=== PATIENT | male | born 1975 ===

== ENCOUNTER 2019-10-30 17:35 | Emergency (ER) | payer SELFPAY ==
[2019-10-30 17:42] VITALS: BP 190/99; PULSE 73; RESP 18; TEMP 36.5; O2SAT 99; BMI 25.0
--- NOTE | 2019-10-30 17:47 | ECG_ITS ---
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 Measurements Intervals [place] Rate: 69 P: [place]: -1 QRS: 105 QRSD: 184 T: 252 QT: 365 QTc: 393 Interpretive Statements Sinus rhythm No previous ECG available for comparison Electronically Signed On 10-31-2019 17:40:22 CDT by Markus Dodd M.D. [id number]
--- NOTE | 2019-10-30 17:47 | XRR_ITS ---
PROCEDURE INFORMATION: Exam: XR Chest, 1 View Exam date and time: 10/30/2019 5:58 PM Age: 44 years old Clinical indication: Chest pain; Type not specified TECHNIQUE: Imaging protocol: XR of the chest Views: 1 view. COMPARISON: No relevant prior studies available. FINDINGS: Lungs: Unremarkable. No consolidation. Pleural space: Unremarkable. No pleural effusion. No pneumothorax. Heart/Mediastinum: Unremarkable. No cardiomegaly. Bones/joints: Unremarkable. XR/XR chest 1V portable [id number] IMPRESSION: No acute findings.
[2019-10-30 18:30] LABS: Troponin(5th) Baseline 6 ng/L (0-15)
--- NOTE | 2019-10-30 19:47 | ECG_ITS ---
[facility] Test Date: 2019-10-30 Pat Name: Uli Singh Department: Room: Gender: Male P 3 Armament/Ordnance Ima Technician: : 1975 Requested By: Renuka Juan Order Number: [id number] Joselin MD: Soumya Verma M.D. Measurements Intervals [place] Rate: 59 P: 75 [place]: 174 QRS: 76 QRSD: 78 T: 52 QT: 394 QTc: 392 Interpretive Statements SINUS BRADYCARDIA No previous ECG available for comparison Electronically Signed On 10-30-2019 21:45:54 CDT by Soumya Verma M.D. [id number]
[2019-10-30 19:50] VITALS: BP 188/106; PULSE 60; RESP 21; O2SAT 99
--- NOTE | 2019-10-30 19:57 | W.ED.GENADLT ---
HPI - General Adult General: Chief complaint: General Medical Stated complaint: CP Time Seen by Provider: 10/30/19 19:41 History of Present Illness: HPI narrative: This patient is a 44-year-old male presenting with high blood pressure. He said for the past week or so he has not felt well. He has had racing of his heart at times, particular when he wakes up in the morning. He also wakes up trying to catch his breath sometimes. He also has been having severe headaches and some intermittent chest pain. He had an episode similar to this in the past and at that time was diagnosed with a very high blood pressure. He was started on blood pressure medicine but eventually has stopped taking it. He checked his blood pressure at home last night and noted it was quite high. His made him an appointment to see his primary care provider today but when he got to the office and they checked his blood pressure they told him he had to come to the ER. Associated symptoms: Deny chest pain, dyspnea, headache(s), malaise, nausea, rash or vomiting Review of Systems General: Reports: 10 or more systems reviewed and unremarkable except in HPI and below Const: Denies: fever(s), chills, fatigue or malaise Eyes: Denies: change in vision ENMT: Denies: odynophagia Card: Denies: chest pain or swelling of feet/ankles Resp: Denies: dyspnea, productive cough or non-productive cough GI: Denies: abdominal pain, nausea or vomiting : Denies: flank pain Musc: Denies: neck pain or back pain Skin/Breast: Denies: rash Neuro: Denies: headache(s), numbness in extremities or weakness in extremities Kye/Lymph: Denies: easy bruising or easy bleeding [facility] ED PFSH: Social History (Updated 10/30/19 @ 17:46 by Jennifer Gomez RN) Smoking and tobacco status: former smoker Alcohol intake: current Substance/Drug Use: current Substance/Drug use type: Marijuana Physical Exam Const: COMMON NORMALS: no acute distress, patient oriented x3, no limitations and alert GENERAL APPEARANCE: cooperative and comfortable HENMT: HEAD & SCALP: normal to inspection FACE & SINUS: normal facial exam Eye: GENERAL EYE: appearance normal, both eyes and all related structures Neck/C-Spine: COMMON NORMALS: supple, no meningeal signs and no JVD Chest: COMMONS NORMALS: normal inspection of the chest Resp: COMMON NORMALS: normal respiratory effort, No use of accessory muscles and clear to auscultation bilaterally AUSCULTATION: clear to auscultation bilaterally Cardio: COMMON NORMALS: no JVD, regular rate, regular rhythm and No murmurs present (Cardio) RATE: regular rate RHYTHM: regular rhythm GI: COMMON NORMALS: Normal to inspection, nondistended, normoactive bowel sounds present, Soft to palpation and non-tender INSPECTION: Yes normal to inspection AUSCULTATION: Yes normoactive bowel sounds PALPATION: Yes Soft to palpation Back/Pelvis: COMMON NORMALS: thoracic and lumbar spine normal to inspection Extremity: COMMON NORMALS: normal to inspection Neuro: COMMON NORMALS: patient oriented x3, moves all extremities, no focal motor deficits and no sensory deficits noted SENSORIUM/ORIENTATION: Yes alert MENINGEAL SIGNS: Yes no meningeal signs Psych: COMMON NORMALS: mental status grossly normal, cooperative and normal affect Skin: COMMON NORMALS: no rashes or lesions noted and turgor normal GENERAL SKIN EXAM: no rashes or lesions noted and turgor normal Course ED course: Patient came in with high blood pressure. He has a history of the same but has not been on medications. His work-up was negative in the emergency department. We discussed that it is important for him to stay on blood pressure medicine as long-term effects can cause organ damage, strokes, kidney failure. He was given a prescription for lisinopril, 10 mg daily to start and he will follow-up with his primary care physician. Vital Signs: Vital signs: Vital Signs Temperature 97.7 F 10/30/19 17:42 Pulse Rate 57 L 10/30/19 21:19 Respiratory Rate 19 H 10/30/19 21:19 Blood Pressure 163/99 10/30/19 21:19 Pulse Oximetry 96 10/30/19 21:19 MDM - General Adult Lab Data: Labs: Lab Results 10/30/19 10/30/19 10/30/19 Range/Units 18:00 20:12 20:12 WBC 11.6 H (4.0-10.0) 10^3/ uL RBC 5.06 (4.1-5.3) 10^6/u L Hgb 16.7 H (11.7-16.6) g/dL Hct 49.9 (42.0-52.0) % MCV 98.6 H (80-94) fL MCH 33.0 (28.0-34.0) pg MCHC 33.5 (30.0-36.0) g/dL RDW 13.1 (12.1-15.1) % Plt Count 246 (130-400) 10^3/c mm MPV 9.7 (7.4-10.4) fL Neut % (Auto) 70.6 % Lymph % (Auto) 19.2 % Carver % (Auto) 7.4 % Eos % (Auto) 1.8 % Baso % (Auto) 0.7 % Neut # (Auto) 8.19 H (1.8-7.7) 10^3/u L Lymph # (Auto) 2.2 (0.8-4.8) 10^3/u L Carver # (Auto) 0.9 (0.2-0.9) 10^3/u L Eos # (Auto) 0.2 (0.0-0.8) 10^3/u L Baso # (Auto) 0.1 (0.0-0.1) 10^3/u L Nucleated RBC % (a uto) 0 % Nucleated RBCs # 0.0 /100WBC Sodium (136-145) mmol/L Potassium (3.5-5.1) mmol/L Chloride (98-107) mmol/L Carbon Dioxide (22-29) mmol/L Anion Gap (5-19) BUN (6-20) mg/dL Creatinine (0.7-1.2) mg/dL GFR Calculation (90-130) mL/min Glucose (65-115) mg/dL Calculated Osmolal ity (285-295) mOsm/k g Calcium (8.5-10.5) mg/dL Total Bilirubin (0.15-1.2) mg/dL AST (0-40) U/L ALT (0-41) U/L Alkaline Phosphata se (40-130) IU/L Troponin T Baselin e 6 (0-15) ng/L Troponin T 120 Min [place] 6.00 (0-15) ng/L Delta Troponin T 0 (0-10) ABS# Total Protein (6.6-8.7) g/dL Albumin (3.5-5.2) g/dL Globulin (1.3-4.6) g/dL Lipase (13-60) U/L Urine Color (Yellow) Urine Appearance (CLEAR) Urine pH (5-7) Ur Specific Gravit y (1.005-1.030) Urine Protein (Negative) Urine Glucose (UA) (Normal) Urine Ketones (Negative) Urine Blood (Negative) Urine Nitrate (Negative) Urine Bilirubin (NEGATIVE) Urine Urobilinogen (Negative) mg/dL Ur Leukocyte Krista ase (Negative) Urine RBC (0-2) /hpf Urine WBC (0-5) /hpf Ur Squamous Epith Cells (0-5) Amorphous Sediment Urine Bacteria (NONE) 10/30/19 10/30/19 Range/Units 20:12 20:38 WBC (4.0-10.0) 10^3/ uL RBC (4.1-5.3) 10^6/u L Hgb (11.7-16.6) g/dL Hct (42.0-52.0) % MCV (80-94) fL MCH (28.0-34.0) pg MCHC (30.0-36.0) g/dL RDW (12.1-15.1) % Plt Count (130-400) 10^3/c mm MPV (7.4-10.4) fL Neut % (Auto) % Lymph % (Auto) % Carver % (Auto) % Eos % (Auto) % Baso % (Auto) % Neut # (Auto) (1.8-7.7) 10^3/u L Lymph # (Auto) (0.8-4.8) 10^3/u L Carver # (Auto) (0.2-0.9) 10^3/u L Eos # (Auto) (0.0-0.8) 10^3/u L Baso # (Auto) (0.0-0.1) 10^3/u L Nucleated RBC % (a uto) % Nucleated RBCs # /100WBC Sodium 134 L (136-145) mmol/L Potassium 3.9 (3.5-5.1) mmol/L Chloride 102 (98-107) mmol/L Carbon Dioxide 22 (22-29) mmol/L Anion Gap 13.9 (5-19) BUN 13 (6-20) mg/dL Creatinine 0.8 (0.7-1.2) mg/dL GFR Calculation 105.5 (90-130) mL/min Glucose 109 (65-115) mg/dL Calculated Osmolal ity 275 L (285-295) mOsm/k g Calcium 9.1 (8.5-10.5) mg/dL Total Bilirubin 0.4 (0.15-1.2) mg/dL AST 19 (0-40) U/L ALT 18 (0-41) U/L Alkaline Phosphata se 70 (40-130) IU/L Troponin T Baselin e (0-15) ng/L Troponin T 120 Min [place] (0-15) ng/L Delta Troponin T (0-10) ABS# Total Protein 8.0 (6.6-8.7) g/dL Albumin 4.7 (3.5-5.2) g/dL Globulin 3.3 (1.3-4.6) g/dL Lipase 26 (13-60) U/L Urine Color Yellow (Yellow) Urine Appearance Clear (CLEAR) Urine pH 7 (5-7) Ur Specific Gravit y 1.015 (1.005-1.030) Urine Protein Neg (Negative) Urine Glucose (UA) Norm (Normal) Urine Ketones Negative (Negative) Urine Blood Trace H (Negative) Urine Nitrate Negative (Negative) Urine Bilirubin Neg (NEGATIVE) Urine Urobilinogen Norm (Negative) mg/dL Ur Leukocyte Krista ase Negative (Negative) Urine RBC Rare (0-2) /hpf Urine WBC None (0-5) /hpf Ur Squamous Epith Cells None (0-5) Amorphous Sediment Not Reportable Urine Bacteria None (NONE) Discharge Plan Discharge Patient Disposition: Home Condition: Stable Prescriptions: New lisinopril 10 mg tablet 10 mg PO DAILY Qty: 30 RF: 0 No Action Aleve 220 mg Tablet 440 - 660 mg PO PRN RF: 0 Discharge Orders: Discharge Order (Routine); Ordered 10/30/19 Ordered By: Renuka Sandy Discharge Diet: Low Salt Discharge Activity: Resume usual activity Patient Instructions: Hypertension (ED) Activity Restrictions/Additional Instructions: Follow-up with your primary care provider for further management of your blood pressure. It could be helpful to check your blood pressure daily at home and keep a log so that your doctor can see if the medication is working. Watch the amount of sodium in your diet as that can contribute to high blood pressures. Also limit caffeine intake and avoid energy drinks. Discharge Date/Time: 10/30/19 21:25 Coding Level of Care Code ED Soil Conservation Teacher for Vivi Deluca
[2019-10-30] MEDS: cloNIDine 0.1 mg Tablet PO (20:15)
[2019-10-30 20:18] LABS: Basophils # 0.1 10^3/uL (0.0-0.1); Basophils % 0.7 %; Eosinophils # 0.2 10^3/uL (0.0-0.8); Eosinophils % 1.8 %; Hematocrit 49.9 % (42.0-52.0); Hemoglobin 16.7 g/dL (11.7-16.6); Lymphocytes # 2.2 10^3/uL (0.8-4.8); Lymphocytes % 19.2 %; Mean Corpuscular HGB Conc 33.5 g/dL (30.0-36.0); Mean Corpuscular Volume 98.6 fL (80-94); Mean Platelet Volume 9.7 fL (7.4-10.4); Monocytes # 0.9 10^3/uL (0.2-0.9); Monocytes % 7.4 %; Neutrophils # 8.19 10^3/uL (1.8-7.7); Neutrophils % 70.6 %; Nucleated Red Blood Cells % 0 %; Platelet Count 246 10^3/cmm (130-400); Red Blood Count 5.06 10^6/uL (4.1-5.3); Red Cell Distribution Width 13.1 % (12.1-15.1); White Blood Count 11.6 10^3/uL (4.0-10.0)
[2019-10-30 20:36] LABS: Alanine Aminotransferase 18 U/L (0-41); Albumin Level 4.7 g/dL (3.5-5.2); Alkaline Phosphatase 70 IU/L (40-130); Anion Gap 13.9 (5-19); Aspartate Amino Transferase 19 U/L (0-40); Blood Urea Nitrogen 13 mg/dL (6-20); Calcium 9.1 mg/dL (8.5-10.5); Carbon Dioxide 22 mmol/L (22-29); Chloride 102 mmol/L (98-107); Globulin 3.3 g/dL (1.3-4.6); Glomerular Filtration Rate 105.5 mL/min (90-130); Glucose 109 mg/dL (65-115); Lipase 26 U/L (13-60); Osmolality Calculated 275 mOsm/kg (285-295); Potassium 3.9 mmol/L (3.5-5.1); Sodium 134 mmol/L (136-145); Total Bilirubin 0.4 mg/dL (0.15-1.2)
[2019-10-30 20:37] LABS: Troponin 5 2HR Delta 0 ABS# (0-10)
[2019-10-30 20:46] VITALS: BP 152/101; PULSE 70; RESP 17; O2SAT 97
[2019-10-30] MEDS: lisinopril 10 mg Tablet PO (20:47)
[2019-10-30 21:19] VITALS: BP 163/99; PULSE 57; RESP 19; O2SAT 96
[2019-10-30 21:36] LABS: Add Urine Microscopic? YES; Bilirubin Urine Neg (NEGATIVE); Blood Urine Trace (Negative); Glucose Urine UA Norm (Normal); Ketones Urine Negative (Negative); Leukocyte Esterase Urine Negative (Negative); Nitrate Urine Negative (Negative); Protein Urine Neg (Negative); RBC Urine RARE /hpf (0-2); Specific Gravity, Urine 1.015 (1.005-1.030); Urine Appearance Clear (CLEAR); Urine Color Yellow (Yellow); Urobilinogen Urine Norm (Negative); pH Urine 7 (5-7)
== END 2019-10-30 21:25 | disposition home or self-care (01) ==
PROVIDERS: Emergency Provider Emergency Medicine
DX: R07.9 Chest pain, unspecified (principal); I10 Essential (primary) hypertension; Z87.891 Personal history of nicotine dependence
CPT/HCPCS: 12345; 36415; 71045; 80053; 81001; 83690; 84484; 85025; 93005; 93010; 99283; 99284

== ENCOUNTER 2024-10-04 15:40 | Emergency (ER) | payer SELFPAY ==
--- NOTE | 2024-10-04 15:43 | ECG_ITS ---
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 Measurements Intervals [place] Rate: 86 P: 80 [place]: 172 QRS: 73 QRSD: 81 T: 50 QT: 346 QTc: 414 Interpretive Statements SINUS RHYTHM WITH SINUS ARRHYTHMIA POSSIBLE LEFT ATRIAL ENLARGEMENT [-0.1mV P-WAVE IN V1/V2] INTERPRETATION BASED ON A DEFAULT AGE OF 40 YEARS Compared to ECG 10/30/2019 19:51:51 Sinus bradycardia no longer present Electronically Signed On 10-05-2024 15:20:59 CDT by Emani New M.D. [email or web address] [id number]
--- OUTSIDE RECORDS SUMMARY | 2024-10-04 15:50 | XMS_ITS | Clinical Summary ---
Author Organization [facility] Address [address] [place] [address] Phone Care Team Providers Care Director Of Aviation Name Role Phone Unavailable Primary Care Provider Unavailabl e Allergies No known active allergies Medications HYDROcodone-acet aminophen (NORCO) 5-325 mg Oral tablet Take 1-2 Tabs by mouth every 6 hours as needed for Pain. 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 Gender Identity Not on file Sexual Orientation Not on file Last Filed Vital Signs Vital Sign Reading Time Taken Comments Blood Pressure 130/86 08/12/2010 10:50 AM CDT Pulse 70 08/12/2010 10:50 AM CDT Temperature 36.1 C (96.9 F) 08/12/2010 9:49 AM CDT Respiratory Rate 16 08/12/2010 10:50 AM CDT Oxygen Saturation 98% 08/12/2010 10:50 AM CDT Inhaled Oxygen Concentration - - Weight 70.3 kg (155 lb) 08/12/2010 9:49 AM CDT Height 172.7 cm (5' 8 ) 08/12/2010 9:49 AM CDT Body Mass Index 23.57 08/12/2010 9:49 AM CDT Plan of Treatment Health Maintenance Due Date Last Done Comments DTAP/TDAP/TD VACCINES (1 - Tdap) 1995 HEPATITIS B VACCINES (1 of 3 - 19+ 3-dose series) 02/27 COLORECTAL SCREENING 2021 Colorectal Cancer Screening 2021 FIT-DNA Q 3 years 2021 FIT/FOBT Q 1 year 2021 Flex Sig/CT Colonography Q 5 years 2021 INFLUENZA VACCINE (#1) 2024
[2024-10-04 15:52] VITALS: BP 172/92; PULSE 82; RESP 18; TEMP 37.1; O2SAT 98; BMI 25.0
--- NOTE | 2024-10-04 16:15 | XRR_ITS ---
PROCEDURE INFORMATION: Exam: XR Chest Exam date and time: 10/04/2024 4:19 PM Age: 49 years old Clinical indication: Pain; Chest pressure; Additional info: Chest pain TECHNIQUE: Imaging protocol: Radiologic exam of the chest. Views: 1 view. COMPARISON: CR XR chest 1V portable [id number] 10/30/2019 5:50 PM FINDINGS: Lungs: Unremarkable. No consolidation. Pleural spaces: Unremarkable. No pleural effusion. No pneumothorax. Heart/Mediastinum: Unremarkable. No cardiomegaly. Bones/joints: Unremarkable. XR/XR chest 1V portable [id number] IMPRESSION: No acute findings.
[2024-10-04 16:39] LABS: Hematocrit 43.8 % (37-53); Hemoglobin 15.10 g/dL (11.27-16.99); Mean Corpuscular HGB Conc 34.5 g/dL (30-55); Mean Corpuscular Hemoglobin 33.3 pg (27-33); Mean Corpuscular Volume 96.7 fl (82-101); Nucleated Red Blood Cells % 0 %; Platelet Count 278 10^3/cmm (157-399); Red Blood Count 4.53 10^6/uL (3.85-5.65); White Blood Count 11.40 10^3/uL (3.29-11.43)
[2024-10-04 17:05] LABS: Troponin(5th) Baseline < 6 ng/L (0-15)
[2024-10-04 17:14] LABS: Alanine Aminotransferase 21 U/L (0-41); Albumin Level 4.8 g/dL (3.5-5.2); Alkaline Phosphatase 94 U/L (40-130); Anion Gap 19.5 (5-19); Aspartate Amino Transferase 21 U/L (0-40); Blood Urea Nitrogen 13 mg/dL (6-20); Calcium 9.6 mg/dL (8.5-10.5); Carbon Dioxide 21 mmol/L (22-29); Chloride 104 mmol/L (98-107); Creatinine Clr Calc Pharmacy 97.5228; Globulin 2.8 g/dL (1.3-4.6); Glucose 107 mg/dL (65-115); NT Pro B Type Natriuretic Pept < 36 pg/mL (0-125); Osmolality Calculated 293 mOsm/kg (285-295); Potassium 3.5 mmol/L (3.5-5.1); Sodium 141 mmol/L (136-145); Total Protein 7.6 g/dL (6.6-8.7)
--- NOTE | 2024-10-04 17:18 | W.ED.CHESTPA ---
Documented by User: Terry Simental DO 10/05/24 13:37 HPI - Chest Pain General: Chief Complaint: Chest Pain Stated Complaint: CP SOB Time Seen by Provider: 10/04/24 17:12 History of Present Illness: 49-year-old male presents emergency room generally not feeling well. Patient states he was somewhat short of breath just did not feel well today complained of a little pressure but never actually had chest pain he knows chief complaint is listed as his chest pain. Is on lisinopril and elbow to be for hypertension no recent dose changes. He is not a smoker. No fever sweats chills no productive cough Associated symptoms: Deny abdominal pain, dyspnea or fever(s) Related Data Home Medications ?Medication ?Instructions ?Recorded ?Confirmed naproxen sodium 220 mg tablet 440 - 660 mg PO PRN 10/30/19 10/30/19 (Aleve) Previous Rx's ?Medication ?Instructions ?Recorded lisinopril 10 mg tablet 10 mg PO DAILY #30 tabs 10/30/19 albuterol sulfate 90 mcg/actuation 2 inh inhalation Q4H PRN shortness 10/04/24 aerosol inhaler (Ventolin HFA) of breath or wheezing #8.5 grams prednisone 20 mg tablet 20 mg PO BID 5 days #10 tabs 10/04/24 Allergies Allergy/AdvReac Type Severity Reaction Status Date / Time No Known Allergies Allergy Verified 10/30/19 19:56 Review of Systems Const: Denies: fever(s) or chills Card: Denies: chest pain Resp: Denies: dyspnea GI: Denies: abdominal pain : Denies: dysuria, urinary frequency or urinary urgency Musc: Denies: neck pain or back pain Skin/Breast: Denies: rash PFSH ED PFSH: Social History Smoking and tobacco/nicotine status: former use of tobacco/nicotine Alcohol intake: current Substance/Drug Use: current Physical Exam Const: GENERAL APPEARANCE: cooperative ORIENTATION/CONSCIOUSNESS: Yes awake, Yes oriented to person, Yes oriented to place and Yes oriented to time HENMT: COMMON NORMALS: normocephalic, atraumatic and hearing grossly normal bilaterally HEAD & SCALP: normocephalic and atraumatic Resp: COMMON NORMALS: normal respiratory effort, No retractions, No use of accessory muscles and clear to auscultation bilaterally AUSCULTATION: clear to auscultation bilaterally Cardio: COMMON NORMALS: regular rate, regular rhythm and No murmurs present (Cardio) RATE: regular rate RHYTHM: regular rhythm GI: COMMON NORMALS: Soft to palpation and No hepatosplenomegaly present AUSCULTATION: Yes normoactive bowel sounds PALPATION: Yes Soft to palpation, No Tenderness to palpation present (GI), No Guarding due to palpation present (GI) and Yes No hepatosplenomegaly present Extremity: COMMON NORMALS: normal to inspection, capillary refill normal, no clubbing, cyanosis or edema, no calf tenderness and no pedal edema Neuro: SENSORIUM/ORIENTATION: Yes oriented to person, Yes oriented to place and Yes oriented to time Skin: COMMON NORMALS: no rashes or lesions noted GENERAL SKIN EXAM: no rashes or lesions noted Course Vital Signs: Vital signs: Vital Signs Temperature 98.7 F 10/04/24 15:52 Pulse Rate 84 10/04/24 20:56 Respiratory Rate 18 10/04/24 18:09 Blood Pressure 141/99 10/04/24 20:56 Pulse Oximetry 97 10/04/24 20:56 Oxygen Delivery Me thod Room Air 10/04/24 20:00 MDM - Chest Pain Medical Decision Making Chart reviewed and patient discussed with midlevel. Agree with assessment and plan. I assumed care of the above-named patient from previous emergency department physician with instructions to follow-up on his serial troponins and determine diagnosis if possible and disposition. The patient reports feeling better his vital signs were stable his serial troponins were flat. It sounds like his primary care physician wanted to do pulmonary function test and had concerns of possible COPD or emphysema given his smoking history and ongoing marijuana use as well as some occupational hazards. The patient's been previously treated with steroids and improved. The patient will be given an inhaler and a short course of steroids there is no indication for antibiotics or admission to the hospital at this point. I have encouraged the patient to make sure he follows up with primary care in the next couple of days return here if new or worsening symptoms. The patient appears nontoxic and in no apparent distress on the last time that I examined the patient prior to discharge at 2032 hrs. his vital signs have improved he is not tachycardic he is afebrile 97% on room air with just a mildly elevated blood pressure. Medical Records I reviewed the patient's medical records. Lab Data I reviewed the patient's lab results. 10/04/24 16:23 10/04/24 16:23 Radiology Impressions Chest X-Ray 10/04/24 16:15 IMPRESSION: No acute findings. Laboratory Results WBC 11.40 10^3/uL (3.29-11.43) 10/04/24 16:23 RBC 4.53 10^6/uL (3.85-5.65) 10/04/24 16:23 Hgb 15.10 g/dL (11.27-16.99) 10/04/24 16:23 Hct 43.8 % (37-53) 10/04/24 16:23 MCV 96.7 fl (82-101) 10/04/24 16:23 MCH 33.3 pg (27-33) H 10/04/24 16:23 MCHC 34.5 g/dL (30-55) 10/04/24 16:23 RDW 12.7 % (12.1-15.1) 10/04/24 16:23 Plt Count 278 10^3/cmm (157-399) 10/04/24 16:23 MPV 9.3 fL (7.4-10.4) 10/04/24 16:23 Neut % (Auto) 65.6 % 10/04/24 16:23 Lymph % (Auto) 25.8 % 10/04/24 16:23 [place] % (Auto) 6.9 % 10/04/24 16:23 Eos % (Auto) 0.8 % 10/04/24 16:23 Baso % (Auto) 0.6 % 10/04/24 16:23 Neut # (Auto) 7.48 10^3/uL (1.8-7.7) 10/04/24 16:23 Lymph # (Auto) 2.9 10^3/uL (0.8-4.8) 10/04/24 16:23 [place] # (Auto) 0.8 10^3/uL (0.2-0.9) 10/04/24 16:23 Eos # (Auto) 0.1 10^3/uL (0.0-0.8) 10/04/24 16:23 Baso # (Auto) 0.1 10^3/uL (0.0-0.1) 10/04/24 16:23 Nucleated RBC % (auto) 0 % 10/04/24 16:23 Nucleated RBCs # 0.0 /100WBC 10/04/24 16:23 Sodium 141 mmol/L (136-145) 10/04/24 16:23 Potassium 3.5 mmol/L (3.5-5.1) 10/04/24 16:23 Chloride 104 mmol/L (98-107) 10/04/24 16:23 Carbon Dioxide 21 mmol/L (22-29) L 10/04/24 16:23 Anion Gap 19.5 (5-19) H 10/04/24 16:23 BUN 13 mg/dL (6-20) 10/04/24 16:23 Creatinine 0.9 mg/dL (0.7-1.2) 10/04/24 16:23 GFR Calculation 90.1 mL/min (90-130) 10/04/24 16:23 Glucose 107 mg/dL (65-115) 10/04/24 16:23 Calculated Osmolality 293 mOsm/kg (285-295) 10/04/24 16:23 Calcium 9.6 mg/dL (8.5-10.5) 10/04/24 16:23 Total Bilirubin 0.8 mg/dL (0.15-1.2) 10/04/24 16:23 AST 21 U/L (0-40) 10/04/24 16:23 ALT 21 U/L (0-41) 10/04/24 16:23 Alkaline Phosphatase 94 U/L (40-130) 10/04/24 16:23 Troponin T Baseline < 6 ng/L (0-15) 10/04/24 16:23 Troponin T 120 Minute < 6.0 ng/L (0-15) 10/04/24 17:56 Delta Troponin T 0 ABS# (0-10) 10/04/24 17:56 NT-Pro-B Natriuret Pep < 36 pg/mL (0-125) 10/04/24 16:23 Total Protein 7.6 g/dL (6.6-8.7) 10/04/24 16:23 Albumin 4.8 g/dL (3.5-5.2) 10/04/24 16:23 Globulin 2.8 g/dL (1.3-4.6) 10/04/24 16:23 EKG Data EKG 1: Interpretation: EKG 10/04/2024 1543 normal sinus rhythm rhythm GA interval 172 QTc 414 rate of 86. No acute ST changes noted. Compared to EKG 10/30/2019 Discharge Plan Discharge Patient Disposition: Home Clinical Impression: Atypical chest pain Condition: Stable Prescriptions: New albuterol sulfate [Ventolin HFA] 90 mcg/actuation HFA aerosol inhaler 2 inh inhalation Q4H PRN (Reason: shortness of breath or wheezing) Qty: 8.5 0RF prednisone 20 mg tablet 20 mg PO BID 5 Days Qty: 10 0RF No Action Aleve 220 mg Tablet 440 - 660 mg PO PRN lisinopril 10 mg tablet 10 mg PO DAILY Qty: 30 0RF Discharge Orders: Discharge ED (Routine); Ordered 10/04/24 Ordered By: Benito Trevino Referrals: Daphne Alvarado FNP [Primary Care Provider, Unknown] Discharge Diet: Advance as tolerated Discharge Activity: Resume usual activity Patient Instructions: Opioid Safety, Pain Management, Patient Portal & Danie Instructions Activity Restrictions/Additional Instructions: 1. Take Rx as directed. 2. Stop smoking marijuana. Avoid other lung irritants. 3. Return to ED for new or worsening symptoms. Print Language: Amharic Coding Level of Care Code ED Prizer Hand for Chg Fwd Documented by User: Benito Trevino DO 10/04/24 20:33 HPI - Chest Pain General: Chief Complaint: Chest Pain Stated Complaint: CP SOB Time Seen by Provider: 10/04/24 17:12 Related Data Home Medications ?Medication ?Instructions ?Recorded ?Confirmed naproxen sodium 220 mg tablet 440 - 660 mg PO PRN 10/30/19 10/30/19 (Aleve) Previous Rx's ?Medication ?Instructions ?Recorded lisinopril 10 mg tablet 10 mg PO DAILY #30 tabs 10/30/19 albuterol sulfate 90 mcg/actuation 2 inh inhalation Q4H PRN shortness 10/04/24 aerosol inhaler (Ventolin HFA) of breath or wheezing #8.5 grams prednisone 20 mg tablet 20 mg PO BID 5 days #10 tabs 10/04/24 Allergies Allergy/AdvReac Type Severity Reaction Status Date / Time No Known Allergies Allergy Verified 10/30/19 19:56 [facility] ED PFSH: Social History Smoking and tobacco/nicotine status: former use of tobacco/nicotine Alcohol intake: current Substance/Drug Use: current Course Vital Signs: Vital signs: Vital Signs Temperature 98.7 F 10/04/24 15:52 Pulse Rate 84 10/04/24 20:56 Respiratory Rate 18 10/04/24 18:09 Blood Pressure 141/99 10/04/24 20:56 Pulse Oximetry 97 10/04/24 20:56 Oxygen Delivery Me thod Room Air 10/04/24 20:00 MDM - Chest Pain Medical Decision Making I assumed care of the above-named patient from previous emergency department physician with instructions to follow-up on his serial troponins and determine diagnosis if possible and disposition. The patient reports feeling better his vital signs were stable his serial troponins were flat. It sounds like his primary care physician wanted to do pulmonary function test and had concerns of possible COPD or emphysema given his smoking history and ongoing marijuana use as well as some occupational hazards. The patient's been previously treated with steroids and improved. The patient will be given an inhaler and a short course of steroids there is no indication for antibiotics or admission to the hospital at this point. I have encouraged the patient to make sure he follows up with primary care in the next couple of days return here if new or worsening symptoms. The patient appears nontoxic and in no apparent distress on the last time that I examined the patient prior to discharge at 2032 hrs. his vital signs have improved he is not tachycardic he is afebrile 97% on room air with just a mildly elevated blood pressure. Lab Data 10/04/24 16:23 10/04/24 16:23 Radiology Impressions Chest X-Ray 10/04/24 16:15 IMPRESSION: No acute findings. Laboratory Results WBC 11.40 10^3/uL (3.29-11.43) 10/04/24 16:23 RBC 4.53 10^6/uL (3.85-5.65) 10/04/24 16:23 Hgb 15.10 g/dL (11.27-16.99) 10/04/24 16:23 Hct 43.8 % (37-53) 10/04/24 16:23 MCV 96.7 fl (82-101) 10/04/24 16:23 MCH 33.3 pg (27-33) H 10/04/24 16:23 MCHC 34.5 g/dL (30-55) 10/04/24 16:23 RDW 12.7 % (12.1-15.1) 10/04/24 16:23 Plt Count 278 10^3/cmm (157-399) 10/04/24 16:23 MPV 9.3 fL (7.4-10.4) 10/04/24 16:23 Neut % (Auto) 65.6 % 10/04/24 16:23 Lymph % (Auto) 25.8 % 10/04/24 16:23 [place] % (Auto) 6.9 % 10/04/24 16:23 Eos % (Auto) 0.8 % 10/04/24 16:23 Baso % (Auto) 0.6 % 10/04/24 16:23 Neut # (Auto) 7.48 10^3/uL (1.8-7.7) 10/04/24 16:23 Lymph # (Auto) 2.9 10^3/uL (0.8-4.8) 10/04/24 16:23 [place] # (Auto) 0.8 10^3/uL (0.2-0.9) 10/04/24 16:23 Eos # (Auto) 0.1 10^3/uL (0.0-0.8) 10/04/24 16:23 Baso # (Auto) 0.1 10^3/uL (0.0-0.1) 10/04/24 16:23 Nucleated RBC % (auto) 0 % 10/04/24 16:23 Nucleated RBCs # 0.0 /100WBC 10/04/24 16:23 Sodium 141 mmol/L (136-145) 10/04/24 16:23 Potassium 3.5 mmol/L (3.5-5.1) 10/04/24 16:23 Chloride 104 mmol/L (98-107) 10/04/24 16:23 Carbon Dioxide 21 mmol/L (22-29) L 10/04/24 16:23 Anion Gap 19.5 (5-19) H 10/04/24 16:23 BUN 13 mg/dL (6-20) 10/04/24 16:23 Creatinine 0.9 mg/dL (0.7-1.2) 10/04/24 16:23 GFR Calculation 90.1 mL/min (90-130) 10/04/24 16:23 Glucose 107 mg/dL (65-115) 10/04/24 16:23 Calculated Osmolality 293 mOsm/kg (285-295) 10/04/24 16:23 Calcium 9.6 mg/dL (8.5-10.5) 10/04/24 16:23 Total Bilirubin 0.8 mg/dL (0.15-1.2) 10/04/24 16:23 AST 21 U/L (0-40) 10/04/24 16:23 ALT 21 U/L (0-41) 10/04/24 16:23 Alkaline Phosphatase 94 U/L (40-130) 10/04/24 16:23 Troponin T Baseline < 6 ng/L (0-15) 10/04/24 16:23 Troponin T 120 Minute < 6.0 ng/L (0-15) 10/04/24 17:56 Delta Troponin T 0 ABS# (0-10) 10/04/24 17:56 NT-Pro-B Natriuret Pep < 36 pg/mL (0-125) 10/04/24 16:23 Total Protein 7.6 g/dL (6.6-8.7) 10/04/24 16:23 Albumin 4.8 g/dL (3.5-5.2) 10/04/24 16:23 Globulin 2.8 g/dL (1.3-4.6) 10/04/24 16:23 XR interpretation done by ED provider, pending radiology final review ED provider radiology interpretation(s): No acute cardiopulmonary process Discharge Plan Discharge Patient Disposition: Home Clinical Impression: Atypical chest pain Condition: Stable Prescriptions: New albuterol sulfate [Ventolin HFA] 90 mcg/actuation HFA aerosol inhaler 2 inh inhalation Q4H PRN (Reason: shortness of breath or wheezing) Qty: 8.5 0RF prednisone 20 mg tablet 20 mg PO BID 5 Days Qty: 10 0RF No Action Aleve 220 mg Tablet 440 - 660 mg PO PRN lisinopril 10 mg tablet 10 mg PO DAILY Qty: 30 0RF Discharge Orders: Discharge ED (Routine); Ordered 10/04/24 Ordered By: Benito Trevino Referrals: Daphne Alvarado FNP [Primary Care Provider, Unknown] Discharge Diet: Advance as tolerated Discharge Activity: Resume usual activity Patient Instructions: Opioid Safety, Pain Management, Patient Portal & Danie Instructions Activity Restrictions/Additional Instructions: 1. Take Rx as directed. 2. Stop smoking marijuana. Avoid other lung irritants. 3. Return to ED for new or worsening symptoms. Print Language: Amharic Coding Level of Care Code ED Prizer Hand for Vivi Deluca
[2024-10-04 18:09] VITALS: BP 159/95; PULSE 73; RESP 18; O2SAT 98
--- NOTE | 2024-10-04 18:15 | ECG_ITS ---
[facility] Test Date: 2024-10-04 Pat Name: Uli Singh Department: Room: Gender: Male Order Processing Manager: : 1975 Requested By: Sammie Juan Order Number: [id number] Joselin MD: Emani New M.D. Measurements Intervals [place] Rate: 72 P: 78 SC: 197 QRS: 74 QRSD: 84 T: 51 QT: 398 QTc: 438 Interpretive Statements SINUS RHYTHM WITH SINUS ARRHYTHMIA Compared to ECG 10/04/2024 15:43:23 No significant changes Electronically Signed On 10-05-2024 15:32:28 CDT by Emani New M.D. [email or web address]
[2024-10-04 18:29] LABS: Troponin 5 2HR < 6.0 ng/L (0-15); Troponin 5 2HR Delta 0 ABS# (0-10)
[2024-10-04 19:00] VITALS: BP 137/96; PULSE 65; O2SAT 97
[2024-10-04 20:00] VITALS: BP 145/84; PULSE 63; O2SAT 97
[2024-10-04 20:56] VITALS: BP 141/99; PULSE 84; O2SAT 97
== END 2024-10-04 21:00 | disposition home or self-care (01) ==
PROVIDERS: Emergency Medicine; Emergency Provider Family Medicine; PCP Nurse Practitioner Family
DX: R07.89 Other chest pain (principal); I10 Essential (primary) hypertension; E07.89 Other specified disorders of thyroid; Z79.899 Other long term (current) drug therapy; Z87.891 Personal history of nicotine dependence
CPT/HCPCS: 36415; 71045; 80053; 83880; 84484; 85025; 93005; 99285